=== PATIENT | female | born 2000 | race Caucasian/White ===

== ENCOUNTER 2022-08-19 10:04 | Inpatient (IN) ==
[2022-08-19 11:18] LABS: Appearance Urine Cloudy (Clear); Bacteria Urine Automated 1+ (Negative); Blood Urine Negative (Negative); Color Urine Dark Yellow; Epithelial Cell Urine Auto >30 /lpf (0-5); Glucose Urine UA Negative (Negative); Ketones Urine 3+ (Negative); Leukocyte Esterase Urine 1+ (Negative); Nitrite Urine Negative (Negative); Protein Urine 1+ (Negative); Specific Gravity Urine 1.025 (1.000-1.030); Urobilinogen Urine Negative (Negative); pH Urine 6.5 (4.5-7.5)
[2022-08-19] MEDS ORDERED: ONDANSETRON INJ 2 MG/ML 2 ML VIAL ONE (11:20)
[2022-08-19 11:26] LABS: Bilirubin Urine 1+ (Negative)
[2022-08-19] MEDS: ONDANSETRON INJ 2 MG/ML 2 ML VIAL IV STA (11:35)
[2022-08-19 11:43] LABS: Mucus Urine Present (None Prsent); Renal Epithelial Cells Urine 0-5 /lpf (0-5)
[2022-08-19 12:16] LABS: Basophils # (auto) 0.03 K/uL (0-0.2); Basophils % (auto) 0.3 %; Eosinophils # (auto) 0.01 K/uL (0-0.50); Eosinophils % (auto) 0.1 %; Hematocrit (blood only) 43.9 % (37.0-47.0); Hemoglobin 15.3 g/dl (12.0-16.0); Immature Granulocytes # (auto) 0.04 K/uL (0.01-0.20); Immature Granulocytes % (auto) 0.4 %; Lymphocytes # (auto) 1.24 K/uL (1.2-3.4); Lymphocytes % (auto) 11.2 %; Mean Corpuscular Hemoglobin 28.7 pg (25.0-34.0); Mean Corpuscular Hgb Conc 34.9 g/dL (32.0-36.0); Mean Corpuscular Volume 82.2 fL (80.0-100.0); Mean Platelet Volume 10.8 fL (9.4-12.4); Monocytes # (auto) 0.67 K/uL (0.11-0.59); Platelet Count 298 K/uL (130-400); RDW Coefficient of Variation 12.4 % (11.5-14.5); RDW Standard Deviation 36.8 fL (36.4-46.3); Red Blood Count 5.34 M/uL (4.20-5.40); White Blood Count 11.09 K/ul (4.8-10.8)
--- NOTE | 2022-08-19 12:24 | Emergency Department Note ---
History of Present Illness General Chief complaint: Mental Health Evaluation Stated complaint: DEPRESSION Time Seen by Provider: 08/19/22 11:03 History of Present Illness Provider complaint: Mental health evaluation vomiting Onset (ago): day(s) (12) Maximum Pain Intensity: 6 22-year-old female presents emergency department with mother for vomiting for 12 days. Patient states she is so depressed and that is why she keeps vomiting. Patient is requesting inpatient treatment for psychiatric concerns. Patient reports no hematemesis coffee-ground emesis or bilious vomiting. No abdominal pain. No intentional overdoses. No alcohol use or drug use. Patient states she is not . No diarrhea melena hematochezia vaginal bleeding or vaginal discharge. Home Medications Medication Instructions Recorded Confirmed Type No Known Home Medications 08/19/22 08/19/22 History Allergies Allergy/AdvReac Type Severity Reaction Status Date / Time No Known Allergies Allergy Verified 08/19/22 15:31 Past Med/Surg History Medical History Depression No pertinent family history Surgical History No pertinent past surgical history Social History Smoking Status: Never smoker Tobacco Type: E-cigarettes / Vaping Preferred Language: Tajik Feels Safe at Home: Yes Gender Identity: Female Physical Exam Vital Signs Vital Signs - 24 hr 08/19/22 10:14 08/19/22 10:04 08/19/22 13:00 Temperature 36.9 C Temperature Source Temporal Artery Scan Pulse Rate 88 Pulse Rate [Left] 79 Pulse Rhythm [Left] Regular Pulse Strength [Left] Normal Respiratory Rate 20 16 18 Respiratory Effort / Characteristics Non-Labored Non-Labored Respiratory Depth Normal Normal Respiratory Pattern Regular Blood Pressure 168/122 H Blood Pressure [Left Arm] 163/79 H Blood Pressure Mean 137 Blood Pressure Mean [Left Arm] 107 Blood Pressure Position [Left Arm] Lying Pulse Oximetry 98 98 Oxygen Delivery Method Room Air Room Air Sepsis Recent Fever Within 48 Hours No Sepsis New/Unexplained Change in Mental Status N/A Sepsis Action Taken by Nursing No Action Required 08/19/22 15:45 Temperature Temperature Source Pulse Rate Pulse Rate [Left] 70 Pulse Rhythm [Left] Pulse Strength [Left] Respiratory Rate 16 Respiratory Effort / Characteristics Respiratory Depth Respiratory Pattern Blood Pressure Blood Pressure [Left Arm] 143/76 H Blood Pressure Mean Blood Pressure Mean [Left Arm] 98 Blood Pressure Position [Left Arm] Pulse Oximetry 100 Oxygen Delivery Method Sepsis Recent Fever Within 48 Hours Sepsis New/Unexplained Change in Mental Status Sepsis Action Taken by Nursing Physical Exam HENT: Exam performed. - Head: Normocephalic and atraumatic. EYES: Conjunctivae and EOM are normal. Right eye exhibits no discharge. Left eye exhibits no discharge. No scleral icterus. NECK: Normal range of motion. Neck supple. No JVD present. CV: Normal rate, regular rhythm, normal heart sounds and intact distal pulses. There is no peripheral edema. Palpable radial pulses bue. PULM/CHEST: Effort normal and breath sounds normal. No respiratory distress. No stridor. no wheezes. no rales. ABD: The abdomen is soft. There is no tenderness. NEURO: Motor and sensation grossly intact. SKIN: Skin is warm and dry. He is not diaphoretic. PSYCH: Patient reports she is depressed. Course Course 1103: The patient was evaluated in room A5. A complete history and physical exam was performed 1608: Vital signs stable. Patient medically cleared. Awaiting psychiatric evaluation and possible placement. 1725: Patient excepted to 3 S. Administered Medications Nicotine (Nicotine 14 Mg/24 Hr Patch) 14 mg TD QAM [facility] Stop: 09/18/22 16:44 Last Admin: 08/19/22 16:44 Dose: 14 mg Documented By: ARMANDO Discontinued Medications Diphenhydramine HCl (Diphenhydramine 50 Mg/Ml Vial) 25 mg IV NOW STA Stop: 08/19/22 12:43 Last Admin: 08/19/22 12:46 Dose: 25 mg Documented By: DAVONTE Metoclopramide HCl (Metoclopramide Hcl Inj 5 Mg/Ml 2 Ml Vial) 5 mg IV ONE ONE Stop: 08/19/22 12:43 Last Admin: 08/19/22 12:46 Dose: 5 mg Documented By: DAVONTE Ondansetron HCl (Ondansetron Inj 2 Mg/Ml 2 Ml Vial) Confirm Administered Dose 4 mg .ROUTE .STK-MED ONE Stop: 08/19/22 11:21 Last Admin: 08/19/22 11:35 Dose: Not Given Documented By: ELAINE Ondansetron HCl (Ondansetron Inj 2 Mg/Ml 2 Ml Vial) 4 mg IV NOW STA Stop: 08/19/22 11:34 Last Admin: 08/19/22 11:35 Dose: 4 mg Documented By: Admin: 08/19/22 11:35 Dose: 4 mg Documented By: IA Medical Decision Making Laboratory Data Attestation: I reviewed the patient's lab results. 08/19/22 11:25 08/19/22 11:25 Lab Results 08/19/22 08/19/22 08/19/22 Range/Units 11:00 11:25 11:25 WBC 11.09 H (4.8-10.8) K/ul RBC 5.34 (4.20-5.40) M/uL Hgb 15.3 (12.0-16.0) g/dl Hct 43.9 (37.0-47.0) % MCV 82.2 (80.0-100.0) fL MCH 28.7 (25.0-34.0) pg MCHC 34.9 (32.0-36.0) g/dL RDW Std Deviation 36.8 (36.4-46.3) fL RDW Coeff of Judah 12.4 (11.5-14.5) % Plt Count 298 (130-400) K/uL MPV 10.8 (9.4-12.4) fL Immature Gran % (Auto) 0.4 % Neut % (Auto) 82.0 % Lymph % (Auto) 11.2 % [place] % (Auto) 6.0 % Eos % (Auto) 0.1 % Baso % (Auto) 0.3 % Neut # (Auto) 9.10 H (1.40-6.50) K/uL Lymph # (Auto) 1.24 (1.2-3.4) K/uL Taney # (Auto) 0.67 H (0.11-0.59) K/uL Eos # (Auto) 0.01 (0-0.50) K/uL Baso # (Auto) 0.03 (0-0.2) K/uL Immature Gran # (Auto) 0.04 (0.01-0.20) K/uL Sodium 135 L (136-145) mmol/L Potassium 3.6 (3.5-5.1) mmol/L Chloride 102 (98-107) mmol/L Carbon Dioxide 22 (21-32) mmol/L Anion Gap 11 (3-11) BUN 8 (6-23) mg/dl Creatinine 0.81 (0.6-1.2) mg/dl Est Cr Clr Drug Dosing 138.4 ml/min Est GFR ( Amer) 119.5 ml/min Est GFR (Non-Af Amer) 103.1 ml/min BUN/Creatinine Ratio 9.9 L (10-20) Glucose 109 H (70-99(Fasting)) mg/dl Calcium 9.5 (8.6-10.3) mg/dl Total Bilirubin 0.5 (0.2-1.0) mg/dl AST 13 (13-39) U/L ALT 12 (7-52) U/L Alkaline Phosphatase 48 (34-104) U/L Total Protein 7.7 (6.0-8.3) gm/dl Albumin 4.5 (3.4-5.0) gm/dl Globulin 3.2 (2.5-4.0) gm/dl Albumin/Globulin Ratio 1.4 (0.9-2) Lipase 17 (11-82) U/L TSH (0.300-4.500) uIu/ml Urine Color Dark Yellow Urine Appearance Cloudy A (Clear) Urine pH 6.5 (4.5-7.5) Ur Specific [place] 1.025 (1.000-1.030) Urine Protein 1+ H (Negative) Urine Glucose (UA) Negative (Negative) Urine Ketones 3+ H (Negative) Urine Blood Negative (Negative) Urine Nitrite Negative (Negative) Urine Bilirubin 1+ H (Negative) Urine Urobilinogen Negative (Negative) Ur Leukocyte Esterase 1+ H (Negative) Urine WBC (Auto) 10-30 H (0-5) /hpf Urine RBC (Auto) 5-10 H (0-4) /hpf U Hyaline Cast (Auto) 1-5 (0-5) /lpf U Epithel Cells (Auto) >30 H (0-5) /lpf Urine Bacteria (Auto) 1+ H (Negative) Ur Renal Epithelial Cell 0-5 (0-5) /lpf Urine Mucus Present A (None Prsent) Salicylates (3.0-30) mg/dl Acetaminophen (10-30) ug/ml Ethyl Alcohol mg/dL (<10.0) mg/dl 08/19/22 08/19/22 08/19/22 Range/Units 11:25 11:25 11:25 WBC (4.8-10.8) K/ul RBC (4.20-5.40) M/uL Hgb (12.0-16.0) g/dl Hct (37.0-47.0) % MCV (80.0-100.0) fL MCH (25.0-34.0) pg MCHC (32.0-36.0) g/dL RDW Std Deviation (36.4-46.3) fL RDW Coeff of Judah (11.5-14.5) % Plt Count (130-400) K/uL MPV (9.4-12.4) fL Immature Gran % (Auto) % Neut % (Auto) % Lymph % (Auto) % [place] % (Auto) % Eos % (Auto) % Baso % (Auto) % Neut # (Auto) (1.40-6.50) K/uL Lymph # (Auto) (1.2-3.4) K/uL [place]aney # (Auto) (0.11-0.59) K/uL Eos # (Auto) (0-0.50) K/uL Baso # (Auto) (0-0.2) K/uL Immature Gran # (Auto) (0.01-0.20) K/uL Sodium (136-145) mmol/L Potassium (3.5-5.1) mmol/L Chloride (98-107) mmol/L Carbon Dioxide (21-32) mmol/L Anion Gap (3-11) BUN (6-23) mg/dl Creatinine (0.6-1.2) mg/dl Est Cr Clr Drug Dosing ml/min Est GFR ( Amer) ml/min Est GFR (Non-Af Amer) ml/min BUN/Creatinine Ratio (10-20) Glucose (70-99(Fasting)) mg/dl Calcium (8.6-10.3) mg/dl Total Bilirubin (0.2-1.0) mg/dl AST (13-39) U/L ALT (7-52) U/L Alkaline Phosphatase (34-104) U/L Total Protein (6.0-8.3) gm/dl Albumin (3.4-5.0) gm/dl Globulin (2.5-4.0) gm/dl Albumin/Globulin Ratio (0.9-2) Lipase (11-82) U/L TSH 0.588 (0.300-4.500) uIu/ml Urine Color Urine Appearance (Clear) Urine pH (4.5-7.5) Ur Specific [place] (1.000-1.030) Urine Protein (Negative) Urine Glucose (UA) (Negative) Urine Ketones (Negative) Urine Blood (Negative) Urine Nitrite (Negative) Urine Bilirubin (Negative) Urine Urobilinogen (Negative) Ur Leukocyte Esterase (Negative) Urine WBC (Auto) (0-5) /hpf Urine RBC (Auto) (0-4) /hpf U Hyaline Cast (Auto) (0-5) /lpf U Epithel Cells (Auto) (0-5) /lpf Urine Bacteria (Auto) (Negative) Ur Renal Epithelial Cell (0-5) /lpf Urine Mucus (None Prsent) Salicylates < 3.0 L (3.0-30) mg/dl Acetaminophen < 3 L (10-30) ug/ml Ethyl Alcohol mg/dL < 10.0 (<10.0) mg/dl Imaging Data Attestation: I personally reviewed and interpreted this imaging study as follows: My Impression: Chest x-ray negative. Airway clear. No pneumothorax. No consolidation. No cardiomegaly or cephalization.. No free air under the diaphragm. No fractures of the skeletal structures. Nonspecific bowel gas pattern no air-fluid levels. Radiologist's Impression: Chest/Abdomen X-ray 08/19/22 11:21 MI CHEST WITH ABDOMINAL SERIES CLINICAL HISTORY: Vomiting. FINDINGS: A PA chest radiograph is compared to study dated 10/20/2021. The cardiomediastinal silhouette is unremarkable. The lungs and pleural spaces are clear. No pneumothorax is seen. The bony thorax is grossly intact. Supine and erect abdominal radiographs are correlated with abdominal CT dated 10/20/2021. A navel piercing is in place. There is a nonobstructed abdominal bowel gas pattern. No evidence of intraperitoneal free air is seen. There are no abnormal abdominal calcifications. The lumbosacral spine and bony pelvis appear intact. IMPRESSION: 1. No active disease in the chest. 2. Nonobstructed abdominal bowel gas pattern. ACT 112: Negative or not required by law. Electronically signed by: Greg Snyder M.D. 08/19/2022 4:15 PM [facility] Narrative 1103: The patient was evaluated in room A5. A complete history and physical exam was performed 1608: Vital signs stable. Patient medically cleared. Awaiting psychiatric evaluation and possible placement. 1725: Patient excepted to 3 S. Impression & Plan Depression, Nausea & vomiting Discharge Plan Visit Data Chief Complaint: Mental Health Evaluation Stated Complaint: DEPRESSION ED Provider: Delgado Wilhelm Discharge Problem: Depression, Nausea & vomiting Patient Disposition: Admitted As Inpatient Discharge Instructions Interventions: ED Discharge Assessment Last Done: 08/19/22 17:27
[2022-08-19 12:31] LABS: Albumin Level 4.5 gm/dl (3.4-5.0); Bilirubin,Total 0.5 mg/dl (0.2-1.0); Calcium 9.5 mg/dl (8.6-10.3); Potassium 3.6 mmol/L (3.5-5.1)
[2022-08-19 12:36] LABS: Acetaminophen < 3 ug/ml (10-30); Salicylate < 3.0 mg/dl (3.0-30)
[2022-08-19 12:37] LABS: Albumin Globulin Ratio 1.4 (0.9-2); BUN Creatinine Ratio 9.9 (10-20); Creatinine Clr Calc Pharmacy 138.4 ml/min; Est GFR (African American) 119.5 ml/min; Est GFR (Non-African American) 103.1 ml/min; Globulin 3.2 gm/dl (2.5-4.0); Total Protein 7.7 gm/dl (6.0-8.3)
[2022-08-19] MEDS ORDERED: METOCLOPRAMIDE HCL INJ 5 MG/ML 2 ML VIAL IV ONE (12:42)
[2022-08-19] MEDS ORDERED: diphenhydrAMINE 50 MG/ML VIAL IV STA (12:42)
[2022-08-19 14:15] LABS: Pregnancy Test, Urine Negative (Negative)
[2022-08-19 14:30] LABS: Amphetamines+Metham, Urine Neg (Neg); Barbiturates, Urine Neg (Neg); Benzodiazepine, Urine Neg (Neg); Cocaine, Urine Neg (Neg); MDMA (Ecstacy), Urine Neg (Neg); Methadone, Urine Neg (Neg); Opiate, Urine Neg (Neg); Phencyclidine, Urine Neg (Neg)
--- NOTE | 2022-08-19 16:16 | XRay Report ---
PA CHEST WITH ABDOMINAL SERIES CLINICAL HISTORY: Vomiting. FINDINGS: A PA chest radiograph is compared to study dated 10/20/2021. The cardiomediastinal silhouette is unrem arkable. The lungs and pleural spaces are clear. No pneumothorax is seen. The bony thorax is grossly intact. Supine and erect abdominal radiographs are correlated with abdominal CT dated 10/20/2021. A navel pier cing is in place. There is a nonobstructed abdominal bowel gas pattern. No evidence of intraperitonea l free air is seen. There are no abnormal abdominal calcifications. The lumbosacral spine and bony pe lvis appear intact. IMPRESSION: 1. No active disease in the chest. 2. Nonobstructed abdominal bowel gas pattern. ACT 112: Negative or not required by law. Electronically signed by: Greg Snyder M.D. 08/19/2022 4:15 PM
[2022-08-19] MEDS: NICOTINE 14 MG/24 HR PATCH TD SCH (16:44)
[2022-08-19] MEDS ORDERED: BISMUTH SUBSALICYLATE LIQD 236 ML PO PRN (17:13)
[2022-08-19] MEDS ORDERED: MAGNESIUM HYDROXIDE SUSP 30 ML UDC PO PRN (17:13)
[2022-08-19] MEDS ORDERED: ACETAMINOPHEN 325 MG TAB PO PRN (17:13)
[2022-08-19] MEDS ORDERED: SODIUM CHLORIDE 0.65% NA SOLN 45 ML (OCEAN) PRN (17:13)
[2022-08-19] MEDS ORDERED: hydrOXYzine HCl 25 MG TAB PO PRN (17:13)
[2022-08-19] MEDS ORDERED: ONDANSETRON 8MG OD TAB PO PRN (18:21)
[2022-08-19] MEDS: hydrOXYzine HCl 25 MG TAB PO PRN (18:23)
[2022-08-20] MEDS: ALUMINUM/MAGNESIUM SUSP 30 ML UDC PO PRN (06:50)
--- NOTE | 2022-08-20 07:44 | History & Physical ---
Date of Service August 20, 2022 Impression / Recommendations Impression 22 y/o F with a history of major depression and REJI and months of intractable nausea and vomiting who presents today as fairly cheerful and no longer nauseated. She was admitted with suicidal thoughts that she now reports have resolved. (1) Major depressive disorder, recurrent, moderate: (2) REJI (generalized anxiety disorder): Plan 08/20/2022: The patient was admitted to the [facility] ([facility]) on q15 min checks (behavioral with suicide precautions) for safety. The patient will participate in group, recreational, and milieu therapies and will be offered additional individual and family sessions as clinically appropriate. Discussed possibility of resuming duloxetine based on her report of possible benefit with a previous trial. Reviewed potential benefits, known possible risks, and alternatives. * start duloxetine 20 mg daily, anticipate likely titration to higher dose Inventory Assets Strengths: supportive relationships, has local supports,voluntary, employed, Needs: safety and stabilization, medication adjustment, additional coping skills Suicide Risk Level Suicide Risk Level: Moderate (q15 min suicide checks) Risk Factors Assessment Male: No : Yes Do You Have Access To A Gun?: No Health Problems: Yes Mental Health Diagnoses: Yes Substance Use Disorders: No Previous Attempt: Yes Previous Psychiatric Hospitalization: Yes Protective Factors Assessment Employed: Yes ([employer]) Supportive Family: Yes Psychiatric History Identifying Data OLEKSANDR PINK is a 22-year-old F who currently lives in [] [alone] with [], has a history of [], and was admitted on 08/19/22 17:13 on a [201 voluntary] [302 involuntary] commitment for []. Chief Complaint "I'm feeling better now". History of Present Illness As part of my review of the medical record, I read the following ED psychiatric renal case manager note: "Pt reports increased depression and anxiety. She states she has been nauseated and vomiting due to her anxiety. She believes that she is dehydrated. She has had multiple stressors recently to include a miscarriage 3 weeks ago. A few days after her miscarriage her sister had a baby which has been very difficult for her. In addition, her other sister was recently dx with cancer. Pt reports that she has not been sleeping and has not been able to go to work for the past week due to her depression and anxiety. She denies SI at this time but states she needs inpatient treatment because she is not functioning. Pt lives with her mom and dad. Mom is with her in the ER and reports that pt has extreme mood swings. She has been having crying spells frequently and has no motivation to work or leave the house. Pt has a hx of depression with one suicide attempt by hanging 3 years ago. At that time she was admitted to [facility] for inpatient treatment. She currently has no outpatient psychiatric providers and takes no medications. She smokes marijuana a few times a week but denies other D&A. She has no hx of self-injurious behaviors. She denies hallucinations, delusions, and paranoia. Pt is not willing to engage in safety/discharge planning. She states she needs inpatient treatment." and the following psychiatric liaison RN note: "She denies suicidal ideations but reports not caring for herself. She has n ot been going to work, she is employed as a hairdresser. For the past 12 days she has had nausea and been vomitting excessively. She reports not eating solid food for the past 12 days and losing approximately 14lbs. She feels that this has been a result of her increased anxiety. Stressors include a miscarriage in June and her sister recently being diagnosed with cancer. She has a history of suicide attempt by hanging which she received inpatient treatment for in 2019 at [facility]. The patient reports that she was taking Cymbalta, Wellbutrin, and Ativan until approximately a year ago. She used to see Dr. Mcmullen but his practice closed so she stopped seeing a psychiatrist. She currently sees HAYDER Vigil as her PCP. She currently uses medical marijuana. The patient is willing for medications. Her fiance is very supportive of her. She is on suicide precautions." Pt reports that she "woke up feeling a lot better" - no longer nauseated at all and not having any suicidal thoughts. She stopped cannabis about a week ago after being told it could account for her nausea, and thinks that was pretty plausible. She presents as cheerful, laughing and joking at times. She endorses having not been going to work "for a while" and having done reduced self-care. She reports having "done pretty good" in the past on medication, but isn't entirely sure what accounts for improvement since she was on duloxetine, bupropion, and doxepin that were all started around the same time. Past Psychiatric History Current Psychiatric Diagnosis: Depression/Anxiety Outpatient Services: none current Previous Psych Admissions: [facility] 2019 Do You Have Access To A Gun?: No History of Previous Suicide Attempt: Yes (2019) Describe Attempts in the Past: attempted hanging 2019 Past Medication Trials: bupropion, doxepin, duloxetine Allergies Allergy/AdvReac Type Severity Reaction Status Date / Time No Known Allergies Allergy Verified 08/19/22 15:31 Home Medications Medication Instructions Recorded Confirmed Type No Known Home Medications 08/19/22 08/19/22 History Family History Family History of: Doesn't Know Alcohol History Hx of Alcohol Use Over the Past 12 Months: No AUDIT Total Score: 0 Smoking Use Have You Smoked or Used Tobacco Products in the Last 30 Days: Yes tobacco type: e-cigarettes Smoking Status: Current every day smoker Smoking packs per day: 1 Substance History Hx of Prescription Med Misuse Over the Past 12 Months: No Hx of Over the Counter Med Misuse Over the Past 12 Months: No Hx of Inhalent Misuse Over the Past 12 Months: No Hx of Organic Substance Use Over the Past 12 Months: Yes (medical marijuana) Hx of Illegal Substances/Street Drug Use Over Past 12 Months: No Problems as a Result of Past Substance Use: None Identified Personal History Living Arrangements: Home Beliefs That Will Affect Care: None Patient History Medical History Depression No pertinent family history Surgical History No pertinent past surgical history Social History Smoking Status: Current every day smoker Tobacco Type: E-cigarettes / Vaping Preferred Language: Mongolian Communication Ability: Effective Assistant Manager/Embalmer Required: No Beliefs That Will Affect Care: None Feels Safe at Home: Yes Gender Identity: Female Assistive Devices: None Review of Systems Psychiatric: + depression and + anxiety; no hopelessness, no paranoia and no hallucinations Physical Exam Psychiatric: Orientation: alert, oriented to person, oriented to place, oriented to time and cooperative Apperance: appropriately dressed and appropriately groomed Eye Contact: good eye contact Motor Behavior: no abnormal motor movements Speech: normal rate/rhythm/volume of speech Affect: euthymic affect (cheerful, but not excessive) Mood: + anxious mood Thought Process: clear/coherent thought process Suicidal Thoughts: denies suicidal thoughts (today), denies suicidal plan and denies suicidal intent Homicidal Thoughts: denies homicidal thoughts Hallucinations: no auditory hallucinations and no visual hallucinations Cognition: recent memory grossly intact, remote memory grossly intact, attention grossly intact and language grossly intact Estimated Intelligence: average estimated intelligence Insight: + fair insight Judgment: + fair judgement Vital Signs (Past 24 Hours): Last Vital Signs Temp 36.6 C 08/20/22 06:00 Pulse 80 08/20/22 06:43 Resp 16 08/20/22 06:00 BP 125/87 08/20/22 06:43 Pulse Ox 100 08/19/22 15:45 O2 Del Method Room Air 08/19/22 13:00 Exam Statement: A physical exam was performed in the ED for the purposes of medical clearance. I accept that physical as correct and adequate for the purposes of the inpatient physical exam. Results & Data (RUST) Laboratory Results Laboratory Results - last 24 hr 08/19/22 08/19/22 08/19/22 11:00 11:25 11:25 WBC 11.09 H RBC 5.34 Hgb 15.3 Hct 43.9 MCV 82.2 MCH 28.7 MCHC 34.9 RDW Std Deviation 36.8 RDW Coeff of Judah 12.4 Plt Count 298 MPV 10.8 Immature Gran % (Auto) 0.4 Neut % (Auto) 82.0 Lymph % (Auto) 11.2 Quay % (Auto) 6.0 Eos % (Auto) 0.1 Baso % (Auto) 0.3 Neut # (Auto) 9.10 H Lymph # (Auto) 1.24 Quay # (Auto) 0.67 H Eos # (Auto) 0.01 Baso # (Auto) 0.03 Immature Gran # (Auto) 0.04 Sodium 135 L Potassium 3.6 Chloride 102 Carbon Dioxide 22 Anion Gap 11 BUN 8 Creatinine 0.81 Est Cr Clr Drug Dosing 138.4 Est GFR ( Amer) 119.5 Est GFR (Non-Af Amer) 103.1 BUN/Creatinine Ratio 9.9 L Glucose 109 H Calcium 9.5 Total Bilirubin 0.5 AST 13 ALT 12 Alkaline Phosphatase 48 Total Protein 7.7 Albumin 4.5 Globulin 3.2 Albumin/Globulin Ratio 1.4 Lipase 17 TSH Urine Color Dark Yellow Urine Appearance Cloudy A Urine pH 6.5 Ur Specific [place] 1.025 Urine Protein 1+ H Urine Glucose (UA) Negative Urine Ketones 3+ H Urine Blood Negative Urine Nitrite Negative Urine Bilirubin 1+ H Urine Urobilinogen Negative Ur Leukocyte Esterase 1+ H Urine WBC (Auto) 10-30 H Urine RBC (Auto) 5-10 H U Hyaline Cast (Auto) 1-5 U Epithel Cells (Auto) >30 H Urine Bacteria (Auto) 1+ H Ur Renal Epithelial Cell 0-5 Urine Mucus Present A Urine Test Salicylates Urine Opiates Screen Ur Methadone, Qual Acetaminophen Urine Barbiturates Ur Phencyclidine (PCP) U Amphetamin/Meth Scrn MDMA (Ecstasy) Screen U Benzodiazepines Scrn Ur Cocaine Metabolite U Marijuana (THC) Screen U Marijuana THC Carboxy Drug Screen Comment Ethyl Alcohol mg/dL SARS-CoV-2, RNA, NAAT 08/19/22 08/19/22 08/19/22 11:25 11:25 11:25 WBC RBC Hgb Hct MCV MCH MCHC RDW Std Deviation RDW Coeff of Judah Plt Count MPV Immature Gran % (Auto) Neut % (Auto) Lymph % (Auto) Quay % (Auto) Eos % (Auto) Baso % (Auto) Neut # (Auto) Lymph # (Auto) Quay # (Auto) Eos # (Auto) Baso # (Auto) Immature Gran # (Auto) Sodium Potassium Chloride Carbon Dioxide Anion Gap BUN Creatinine Est Cr Clr Drug Dosing Est GFR ( Amer) Est GFR (Non-Af Amer) BUN/Creatinine Ratio Glucose Calcium Total Bilirubin AST ALT Alkaline Phosphatase Total Protein Albumin Globulin Albumin/Globulin Ratio Lipase TSH 0.588 Urine Color Urine Appearance Urine pH Ur Specific [place] Urine Protein Urine Glucose (UA) Urine Ketones Urine Blood Urine Nitrite Urine Bilirubin Urine Urobilinogen Ur Leukocyte Esterase Urine WBC (Auto) Urine RBC (Auto) U Hyaline Cast (Auto) U Epithel Cells (Auto) Urine Bacteria (Auto) Ur Renal Epithelial Cell Urine Mucus Urine Test Salicylates < 3.0 L Urine Opiates Screen Ur Methadone, Qual Acetaminophen < 3 L Urine Barbiturates Ur Phencyclidine (PCP) U Amphetamin/Meth Scrn MDMA (Ecstasy) Screen U Benzodiazepines Scrn Ur Cocaine Metabolite U Marijuana (THC) Screen U Marijuana THC Carboxy Drug Screen Comment Ethyl Alcohol mg/dL < 10.0 SARS-CoV-2, RNA, NAAT 08/19/22 08/19/22 08/19/22 Unknown Unknown Unknown WBC RBC Hgb Hct MCV MCH MCHC RDW Std Deviation RDW Coeff of Judah Plt Count MPV Immature Gran % (Auto) Neut % (Auto) Lymph % (Auto) Quay % (Auto) Eos % (Auto) Baso % (Auto) Neut # (Auto) Lymph # (Auto) Quay # (Auto) Eos # (Auto) Baso # (Auto) Immature Gran # (Auto) Sodium Potassium Chloride Carbon Dioxide Anion Gap BUN Creatinine Est Cr Clr Drug Dosing Est GFR ( Amer) Est GFR (Non-Af Amer) BUN/Creatinine Ratio Glucose Calcium Total Bilirubin AST ALT Alkaline Phosphatase Total Protein Albumin Globulin Albumin/Globulin Ratio Lipase TSH Urine Color Urine Appearance Urine pH Ur Specific [place] Urine Protein Urine Glucose (UA) Urine Ketones Urine Blood Urine Nitrite Urine Bilirubin Urine Urobilinogen Ur Leukocyte Esterase Urine WBC (Auto) Urine RBC (Auto) U Hyaline Cast (Auto) U Epithel Cells (Auto) Urine Bacteria (Auto) Ur Renal Epithelial Cell Urine Mucus Urine Test Negative Salicylates Urine Opiates Screen Neg Ur Methadone, Qual Neg Acetaminophen Urine Barbiturates Neg Ur Phencyclidine (PCP) Neg U Amphetamin/Meth Scrn Neg MDMA (Ecstasy) Screen Neg U Benzodiazepines Scrn Neg Ur Cocaine Metabolite Neg U Marijuana (THC) Screen Pos H U Marijuana THC Carboxy Drug Screen Comment Ethyl Alcohol mg/dL SARS-CoV-2, RNA, NAAT NEGATIVE 08/19/22 Unknown WBC RBC Hgb Hct MCV MCH MCHC RDW Std Deviation RDW Coeff of Judah Plt Count MPV Immature Gran % (Auto) Neut % (Auto) Lymph % (Auto) Quay % (Auto) Eos % (Auto) Baso % (Auto) Neut # (Auto) Lymph # (Auto) Quay # (Auto) Eos # (Auto) Baso # (Auto) Immature Gran # (Auto) Sodium Potassium Chloride Carbon Dioxide Anion Gap BUN Creatinine Est Cr Clr Drug Dosing Est GFR ( Amer) Est GFR (Non-Af Amer) BUN/Creatinine Ratio Glucose Calcium Total Bilirubin AST ALT Alkaline Phosphatase Total Protein Albumin Globulin Albumin/Globulin Ratio Lipase TSH Urine Color Urine Appearance Urine pH Ur Specific [place] Urine Protein Urine Glucose (UA) Urine Ketones Urine Blood Urine Nitrite Urine Bilirubin Urine Urobilinogen Ur Leukocyte Esterase Urine WBC (Auto) Urine RBC (Auto) U Hyaline Cast (Auto) U Epithel Cells (Auto) Urine Bacteria (Auto) Ur Renal Epithelial Cell Urine Mucus Urine Test Salicylates Urine Opiates Screen Ur Methadone, Qual Acetaminophen Urine Barbiturates Ur Phencyclidine (PCP) U Amphetamin/Meth Scrn MDMA (Ecstasy) Screen U Benzodiazepines Scrn Ur Cocaine Metabolite U Marijuana (THC) Screen U Marijuana THC Carboxy Pending Drug Screen Comment Pending Ethyl Alcohol mg/dL SARS-CoV-2, RNA, NAAT Current Inpatient Medications Current Inpatient Medications: Current Inpatient Medications Acetaminophen (Acetaminophen 325 Mg Tab) 650 mg PO Q4H PRN PRN Reason: Headache or Minor Fever Stop: 09/18/22 17:12 Al Hydrox/Mg Hydrox/Simethicone (Aluminum/Magnesium Susp 30 Ml Udc) 30 ml PO Q4H PRN PRN Reason: GI Upset Stop: 09/18/22 17:12 Last Admin: 08/20/22 06:50 Dose: 30 ml Bismuth Subsalicylate (Bismuth Subsalicylate Liqd 236 Ml) 15 ml PO PRN PRN PRN Reason: Loose Stool Stop: 09/18/22 17:12 Hydroxyzine HCl (Hydroxyzine Hcl 25 Mg Tab) 50 mg PO HSZ PRN PRN Reason: Insomnia Stop: 09/18/22 17:12 Hydroxyzine HCl (Hydroxyzine Hcl 25 Mg Tab) 25 mg PO Q4H PRN PRN Reason: Anxiety Stop: 09/18/22 17:12 Last Admin: 08/19/22 18:23 Dose: 25 mg Magnesium Hydroxide (Magnesium Hydroxide Susp 30 Ml Udc) 30 ml PO DAILY PRN PRN Reason: Constipation Stop: 09/18/22 17:12 Miscellaneous (Remove Nicoderm Patch) 1 each N/A DAILY@0859 [facility] Stop: 09/19/22 08:58 Nicotine (Nicotine 14 Mg/24 Hr Patch) 14 mg TD QAM [facility] Stop: 09/18/22 16:44 Last Admin: 08/19/22 16:44 Dose: 14 mg Ondansetron HCl (Ondansetron 8mg Od Tab) 8 mg PO Q6H PRN PRN Reason: Nausea And Vomiting Stop: 09/18/22 18:20 Sodium Chloride (Sodium Chloride 0.65% Na Soln 45 Ml ([place])) 1 - 2 sprays NA PRN PRN PRN Reason: Nasal Dryness/Congestion Stop: 09/18/22 17:12
[2022-08-20] MEDS: NICOTINE 14 MG/24 HR PATCH TD SCH (08:52)
[2022-08-20 13:13] LABS: Vitamin B12 > 1500 pg/ml (180-914)
[2022-08-20 13:17] LABS: Vitamin D, 25 Hydrox 18.9 ng/ml (30-100)
[2022-08-20] MEDS: hydrOXYzine HCl 25 MG TAB PO PRN (21:54)
--- NOTE | 2022-08-20 22:07 | Electrocardiogram Report ---
Test Reason : Blood Pressure : / mmHG Vent. Rate : 074 BPM Atrial Rate : 074 BPM P-R Int : 130 ms QRS Dur : 088 ms QT Int : 402 ms P-R-T Axes : 039 064 044 degrees QTc Int : 446 ms Poor data quality, interpretation may be adversely affected Normal sinus rhythm Normal ECG When compared with ECG of 20-OCT-2021 16:54, No significant change was found Confirmed by Trenton Joshi ([id number]) on 08/20/2022 10:07:42 PM Referred By: Confirmed By:Trenton Joshi
[2022-08-21] MEDS: ALUMINUM/MAGNESIUM SUSP 30 ML UDC PO PRN (06:55)
[2022-08-21] MEDS: NICOTINE 14 MG/24 HR PATCH TD SCH (08:33)
[2022-08-21] MEDS ORDERED: DULoxetine HCL 20 MG CAP PO SCH (09:30)
[2022-08-21] MEDS: hydrOXYzine HCl 25 MG TAB PO PRN (09:44)
--- NOTE | 2022-08-21 10:48 | Discharge Summary ---
Date of Service August 21, 2022 History of Present Illness Per admission H&P by Dr. Patino: As part of my review of the medical record, I read the following ED psychiatric director case note: "Pt reports increased depression and anxiety. She states she has been nauseated and vomiting due to her anxiety. She believes that she is dehydrated. She has had multiple stressors recently to include a miscarriage 3 weeks ago. A few days after her miscarriage her sister had a baby which has been very difficult for her. In addition, her other sister was recently dx with cancer. Pt reports that she has not been sleeping and has not been able to go to work for the past week due to her depression and anxiety. She denies SI at this time but states she needs inpatient treatment because she is not functioning. Pt lives with her mom and dad. Mom is with her in the ER and reports that pt has extreme mood swings. She has been having crying spells frequently and has no motivation to work or leave the house. Pt has a hx of depression with one suicide attempt by hanging 3 years ago. At that time she was admitted to [facility] for inpatient treatment. She currently has no outpatient psychiatric providers and takes no medications. She smokes marijuana a few times a week but denies other D&A. She has no hx of self-injurious behaviors. She denies hallucinations, delusions, and paranoia. Pt is not willing to engage in safety/discharge planning. She states she needs inpatient treatment." and the following psychiatric liaison RN note: "She denies suicidal ideations but reports not caring for herself. She has not been going to work, she is employed as a hairdresser. For the past 12 days she has had nausea and been vomitting excessively. She reports not eating solid food for the past 12 days and losing approximately 14lbs. She feels that this has been a result of her increased anxiety. Stressors include a miscarriage in June and her sister recently being diagnosed with cancer. She has a history of suicide attempt by hanging which she received inpatient treatment for in 2019 at [facility]. The patient reports that she was taking Cymbalta, Wellbutrin, and Ativan until approximately a year ago. She used to see Dr. Mcmullen but his practice closed so she stopped seeing a psychiatrist. She currently sees HAYDER Vigil as her PCP. She currently uses medical marijuana. The patient is willing for medications. Her fiance is very supportive of her. She is on suicide precautions." Pt reports that she "woke up feeling a lot better" - no longer nauseated at all and not having any suicidal thoughts. She stopped cannabis about a week ago after being told it could account for her nausea, and thinks that was pretty plausible. She presents as cheerful, laughing and joking at times. She endorses having not been going to work "for a while" and having done reduced self-care. She reports having "done pretty good" in the past on medication, but isn't entirely sure what accounts for improvement since she was on duloxetine, bupropion, and doxepin that were all started around the same time. Physical Exam Vital Signs (Past 24 Hours) Last Vital Signs Temp 36.4 C L 08/21/22 06:00 Pulse 65 08/21/22 07:02 Resp 16 08/21/22 06:00 BP 121/83 08/21/22 07:02 Pulse Ox 100 08/19/22 15:45 O2 Del Method Room Air 08/19/22 13:00 See admission H&P and DOD summary. Principal Diagnosis Major Depressive Disorder, recurrent with anxious distress Psychiatric Data See daily stay summary. In short, patient was engaged with the social/therapeutic milieu of the unit, safety was maintained and the patient was cooperative with care. She was admitted for worsening major depressive with severe anxiety leading to inability to eat over the prior 12 days and with excessive weight loss of approximately 14 lbs and increased difficulty functioning and attending to her ADLs. On admission her symptoms improved significantly with no further emesis and was able to tolerate solid foods. She had difficulty sleeping which she attributed to depression as well as not finding the mattress comfortable which worsened her sciatica pain. On her second day of admission reviewed that her insurance denied her prior authorization and that a peer to peer review was scheduled for 08/23/2022 as it is felt that she meets admission criteria. However, given her history of issues with insurance coverage and already having financial stressors she requested discharge given improvement in her nausea and mood and she was not felt to meet 302 criteria. Medication changes included initiation of duloxetine for depression and anxiety and Vistaril as needed for panic attacks which she tolerated this well. She was also given a script to start mirtazapine after discharge for insomnia, nausea, and as augmentation for depression and anxiety. Discussed medication treatment options in detail. Discussed risks, benefits and alternatives. Patient consented to duloxetine, Vistaril and mirtazapine for MDD, REJI and panic attacks. Reviewed side effects including but not limited to: GI, [place], elevated BP, sexual side effects, and counseled on black box warning of potential for emergence of or increased SI and need to let staff know should this occur or should they feel unsafe. Also discussed importance of seeking emergency care following discharge if this side effect occurs in the future with duloxetine and mirtazapine as well as increased sedation/increased appetite with mirtazapine and dizziness/fatigue with Vistaril. In the outpatient setting recommend ongoing titration of duloxetine 20mg daily if tolerated. Reviewed possibility of cannabis contributing to or causing recent emesis and she plans to avoid any future cannabis use. A support session was held and safety plan was completed prior to discharge. She actively and insightfully participated in safety planning and in discussions about ways to seek support and recognizing warning signs and utilizing coping skills. Reviewed mobile apps that could be used for additional ways to have their safety plan and contacts easily available should thoughts of SI occur in the future. Reviewed importance of seeking emergency care should SI occur or denisse uld they feel unsafe in the future which they agree to do. On the day of discharge she stated her mood was "relieved to be trying some new medications and good" and remained future-oriented including seeing her fiancee and engaging in aftercare appointments for psychiatry and therapy (once off the waitlist) and with her primary care provider and embedded psychiatrist within PCP office. Day of Discharge Assessment Today the patient voices readiness for discharge. They note improvement in mood and anxiety. They deny thoughts of harm to self or others. Thoughts are organized and they are clinically improved from admission. There is no evidence of psychosis. They improved in the hospital with support and medication adjustments. They agree to take medications as prescribed and keep follow-up appointments. At the time of the discharge they are deemed to be stable and appropriate for outpatient level of care. They are not deemed to be at imminent risk of harm to self or others. They are aware of emergency and crisis services. Knows to call 911 or go to nearest emergency care center if in a crisis which cannot be handled as an outpatient. Transition of Care Transition Of Care Record: was reviewed with the patient Advance Directives Advance Directives Information Provided: Yes Advance Directives: No Mental Health Advance Directive: No Advance Directives on File: No Living Will: No Power of Gravity Prospector: No Advance Directives Reason:: Declines as Mental Health Visit. Suicide Risk Level Suicide Risk Level Comments: Acute risk is low given improvement in mood and denial of SI, lack of access to lethal means, plan to avoid substance use, hopefulness. Chronic risk is moderate given multiple non-modifiable risk factors: psychiatric co-morbid diagnoses, prior attempt, emotional reactivity, prior psychiatric hospitalizations but also with protective factors including employed, good social support, sense of responsibility to family and social supports, outpatient care now in place, positive coping skills, positive problem solving, capacity to establish therapeutic alliance, willingness to engage with treatment and capacity for self-observation. Counseled on ways to reduce acute and chronic risk including engaging with outpatient providers, using safety plan if needed, utilizing supports, taking medication, avoiding medical marijuana use and using coping skills. Modifiable risk factors of depression and anxiety were addressed during hospitalization through development of new coping skills, support meeting, safety planning, and medication adjustments. Risk Factors Assessment Male: No : Yes Do You Have Access To A Gun?: No Health Problems: Yes Mental Health Diagnoses: Yes Substance Use Disorders: No Previous Attempt: Yes Previous Psychiatric Hospitalization: Yes Hopelessness: No Protective Factors Assessment Employed: Yes ([employer]) Stable Relationships: Yes Supportive Family: Yes Discharge Data Lab Results 08/19/22 08/19/22 08/19/22 11:00 11:25 11:25 WBC 11.09 H RBC 5.34 Hgb 15.3 Hct 43.9 MCV 82.2 MCH 28.7 MCHC 34.9 RDW Std Deviation 36.8 RDW Coeff of Judah 12.4 Plt Count 298 MPV 10.8 Immature Gran % (Auto) 0.4 Neut % (Auto) 82.0 Lymph % (Auto) 11.2 Grant % (Auto) 6.0 Eos % (Auto) 0.1 Baso % (Auto) 0.3 Neut # (Auto) 9.10 H Lymph # (Auto) 1.24 Grant # (Auto) 0.67 H Eos # (Auto) 0.01 Baso # (Auto) 0.03 Immature Gran # (Auto) 0.04 Sodium 135 L Potassium 3.6 Chloride 102 Carbon Dioxide 22 Anion Gap 11 BUN 8 Creatinine 0.81 Est Cr Clr Drug Dosing 138.4 Est GFR ( Amer) 119.5 Est GFR (Non-Af Amer) 103.1 BUN/Creatinine Ratio 9.9 L Glucose 109 H Calcium 9.5 Total Bilirubin 0.5 AST 13 ALT 12 Alkaline Phosphatase 48 Total Protein 7.7 Albumin 4.5 Globulin 3.2 Albumin/Globulin Ratio 1.4 Lipase 17 Vitamin B12 25-OH Vitamin D Total Folate TSH Urine Color Dark Yellow Urine Appearance Cloudy A Urine pH 6.5 Ur Specific [place] 1.025 Urine Protein 1+ H Urine Glucose (UA) Negative Urine Ketones 3+ H Urine Blood Negative Urine Nitrite Negative Urine Bilirubin 1+ H Urine Urobilinogen Negative Ur Leukocyte Esterase 1+ H Urine WBC (Auto) 10-30 H Urine RBC (Auto) 5-10 H U Hyaline Cast (Auto) 1-5 U Epithel Cells (Auto) >30 H Urine Bacteria (Auto) 1+ H Ur Renal Epithelial Cell 0-5 Urine Mucus Present A Urine Test Salicylates Urine Opiates Screen Ur Methadone, Qual Acetaminophen Urine Barbiturates Ur Phencyclidine (PCP) U Amphetamin/Meth Scrn MDMA (Ecstasy) Screen U Benzodiazepines Scrn Ur Cocaine Metabolite U Marijuana (THC) Screen Ethyl Alcohol mg/dL SARS-CoV-2, RNA, NAAT 08/19/22 08/19/22 08/19/22 11:25 11:25 11:25 WBC RBC Hgb Hct MCV MCH MCHC RDW Std Deviation RDW Coeff of Judah Plt Count MPV Immature Gran % (Auto) Neut % (Auto) Lymph % (Auto) Grant % (Auto) Eos % (Auto) Baso % (Auto) Neut # (Auto) Lymph # (Auto) Grant # (Auto) Eos # (Auto) Baso # (Auto) Immature Gran # (Auto) Sodium Potassium Chloride Carbon Dioxide Anion Gap BUN Creatinine Est Cr Clr Drug Dosing Est GFR ( Amer) Est GFR (Non-Af Amer) BUN/Creatinine Ratio Glucose Calcium Total Bilirubin AST ALT Alkaline Phosphatase Total Protein Albumin Globulin Albumin/Globulin Ratio Lipase Vitamin B12 25-OH Vitamin D Total Folate TSH 0.588 Urine Color Urine Appearance Urine pH Ur Specific [place] Urine Protein Urine Glucose (UA) Urine Ketones Urine Blood Urine Nitrite Urine Bilirubin Urine Urobilinogen Ur Leukocyte Esterase Urine WBC (Auto) Urine RBC (Auto) U Hyaline Cast (Auto) U Epithel Cells (Auto) Urine Bacteria (Auto) Ur Renal Epithelial Cell Urine Mucus Urine Test Salicylates < 3.0 L Urine Opiates Screen Ur Methadone, Qual Acetaminophen < 3 L Urine Barbiturates Ur Phencyclidine (PCP) U Amphetamin/Meth Scrn MDMA (Ecstasy) Screen U Benzodiazepines Scrn Ur Cocaine Metabolite U Marijuana (THC) Screen Ethyl Alcohol mg/dL < 10.0 SARS-CoV-2, RNA, NAAT 08/19/22 08/19/22 08/19/22 Unknown Unknown Unknown WBC RBC Hgb Hct MCV MCH MCHC RDW Std Deviation RDW Coeff of Judah Plt Count MPV Immature Gran % (Auto) Neut % (Auto) Lymph % (Auto) Grant % (Auto) Eos % (Auto) Baso % (Auto) Neut # (Auto) Lymph # (Auto) Grant # (Auto) Eos # (Auto) Baso # (Auto) Immature Gran # (Auto) Sodium Potassium Chloride Carbon Dioxide Anion Gap BUN Creatinine Est Cr Clr Drug Dosing Est GFR ( Amer) Est GFR (Non-Af Amer) BUN/Creatinine Ratio Glucose Calcium Total Bilirubin AST ALT Alkaline Phosphatase Total Protein Albumin Globulin Albumin/Globulin Ratio Lipase Vitamin B12 25-OH Vitamin D Total Folate TSH Urine Color Urine Appearance Urine pH Ur Specific [place] Urine Protein Urine Glucose (UA) Urine Ketones Urine Blood Urine Nitrite Urine Bilirubin Urine Urobilinogen Ur Leukocyte Esterase Urine WBC (Auto) Urine RBC (Auto) U Hyaline Cast (Auto) U Epithel Cells (Auto) Urine Bacteria (Auto) Ur Renal Epithelial Cell Urine Mucus Urine Test Negative Salicylates Urine Opiates Screen Neg Ur Methadone, Qual Neg Acetaminophen Urine Barbiturates Neg Ur Phencyclidine (PCP) Neg U Amphetamin/Meth Scrn Neg MDMA (Ecstasy) Screen Neg U Benzodiazepines Scrn Neg Ur Cocaine Metabolite Neg U Marijuana (THC) Screen Pos H Ethyl Alcohol mg/dL SARS-CoV-2, RNA, NAAT NEGATIVE 08/20/22 12:11 WBC RBC Hgb Hct MCV MCH MCHC RDW Std Deviation RDW Coeff of Judah Plt Count MPV Immature Gran % (Auto) Neut % (Auto) Lymph % (Auto) Grant % (Auto) Eos % (Auto) Baso % (Auto) Neut # (Auto) Lymph # (Auto) Grant # (Auto) Eos # (Auto) Baso # (Auto) Immature Gran # (Auto) Sodium Potassium Chloride Carbon Dioxide Anion Gap BUN Creatinine Est Cr Clr Drug Dosing Est GFR ( Amer) Est GFR (Non-Af Amer) BUN/Creatinine Ratio Glucose Calcium Total Bilirubin AST ALT Alkaline Phosphatase Total Protein Albumin Globulin Albumin/Globulin Ratio Lipase Vitamin B12 > 1500 H 25-OH Vitamin D Total 18.9 L Folate > 22.30 TSH Urine Color Urine Appearance Urine pH Ur Specific [place] Urine Protein Urine Glucose (UA) Urine Ketones Urine Blood Urine Nitrite Urine Bilirubin Urine Urobilinogen Ur Leukocyte Esterase Urine WBC (Auto) Urine RBC (Auto) U Hyaline Cast (Auto) U Epithel Cells (Auto) Urine Bacteria (Auto) Ur Renal Epithelial Cell Urine Mucus Urine Test Salicylates Urine Opiates Screen Ur Methadone, Qual Acetaminophen Urine Barbiturates Ur Phencyclidine (PCP) U Amphetamin/Meth Scrn MDMA (Ecstasy) Screen U Benzodiazepines Scrn Ur Cocaine Metabolite U Marijuana (THC) Screen Ethyl Alcohol mg/dL SARS-CoV-2, RNA, NAAT Hospital Course (1) Major depressive disorder, recurrent, moderate: (2) REJI (generalized anxiety disorder): Plan 08/21/2022: Continue duloxetine 20mg daily (first dose this AM), start mirtazapine 15mg HS, continue Vistaril 25mg daily prn for anxiety/panic attacks. 08/20/2022: The patient was admitted to the [facility] ([facility] mental health unit) on q15 min checks (behavioral with suicide precautions) for safety. The patient will participate in group, recreational, and milieu therapies and will be offered additional individual and family sessions as clinically appropriate. Discussed possibility of resuming duloxetine based on her report of possible benefit with a previous trial. Reviewed potential benefits, known possible risks, and alternatives. * start duloxetine 20 mg daily, anticipate likely titration to higher dose Mental Health & Subst Abuse Tx Psychiatrist Name of Psychiatrist: [facility] Psychiatrist's Time of Appointment with Psychiatrist: You were placed on a waitlist; they will follow up directly. Psychiatric Appointment Comment: [address] [place], [place] [address], [place] [address] Therapist Name of Therapist: [facility] Therapist's Time of Therapist Appointment: You were placed on a waitlist; they will follow up directly. Therapy Appointment Comment: [address] [facility], [place] [address] Lawn Mower Name of Lawn Mower: None Post Discharge Appointments Primary Care Physician Name Of Family Doctor/PCP: HAY[facility] Vig[facility] Date of Future Appointment with PCP: 08/26/2022 Time of Appointment with PCP: 11:20 AM Provider Appointment Comment: [address] [place] [address] Discharge Plan Discharge Items Patient Disposition: Home - Self-Care Reason For Visit: MDD Discharge Diagnosis: Major Depressive Disorder with anxious distress Activity: Resume your previous activity Non-emergency contact: Primary Care Provider, Psychiatrist and Therapist Call non-emergency contact if: you have any medication questions and your symptoms worsen Follow-up/Referrals: PCP,NO [Primary Care Provider] - Diet: Regular Addtl Attending Provider Instructions: Optional mobile apps we discussed: -Suicide safety plan -Virtual Hope Box -Panic Metal Extrusion Supervisor SPECIAL CARE INSTRUCTIONS: 1. Follow through with your scheduled aftercare appointments. If unable to keep an appointment, please call to reschedule. 2. Take your medication only as prescribed. Medication should not be changed or stopped without the approval of your doctor. In the event of worsening symptoms or concerns about side effects, contact your doctor immediately. 3. Utilize new healthy coping skills, anger management skills, and stress management skills learned during your hospitalization. Journal feelings and process them with a support person. Identify stressors or situations that may result in relapse, deterioration or inappropriate behaviors and develop a plan to deal with those issues. 4. If your coping skills are ineffective and you are in crisis, contact your outpatient providers for direction. If unable to reach your providers, please call the [facility] CRISIS LINE AT , go to the [facility] walk-in center at [address], [address], [place], or go to the closest Emergency Room. 5. Avoid alcohol and un-prescribed drugs. 6. You have been provided with the Mental Health Advance Directives Pamphlet for your review. 7. Your condition is stable for discharge to outpatient level of care, but recovery is an ongoing process. Ifthoughts to harm yourself or others return, follow the safety plan developed during your stay. Planning for a safe return home includes securing weapons. Our treatment team recommends weaponsbe removed from the home until your outpatient provider reassesses your progress. In rare cases where the items themselvescannot be removed, guns and ammunitionshould be secured separatelyand keys stored by a reliable personoutside of the home. If you were admitted on an involuntary commitment, the police or other legal authorities may be involved in this process. AFTERCARE APPOINTMENTS: * Please call your insurance company prior to your scheduled appointment to confirm your aftercare providers are covered. Take your insurance information to your appointments. WHO TO CALL AND WHEN: Medical Emergencies: For questions or emergencies related to your hospital stay, please contact the Inpatient Behavioral Health Unit at [phone]. A biofuels processing technician is on-call 29/11 for the Behavioral Health Unit for emergencies At any time you feel your situation is an emergency, you may also call 911 immediately. Pending Studies at Discharge: No Stand-Alone Forms: [facility] Medications and DC Order Prescriptions: New hydroxyzine HCl 25 mg Tablet 25 mg PO DAILY PRN (Reason: anxiety/panic attack/insomnia) 30 Days Qty: 30 0RF mirtazapine 15 mg Tablet 15 mg PO HS 30 Days Qty: 30 0RF duloxetine [Cymbalta] 20 mg Capsule,Delayed Release(Dr/Ec) 20 mg PO QAM 30 Days Qty: 30 0RF Discharge Orders: Discharge Order (Routine); Ordered 08/21/22 Ordered By: Marleen Arguelles/Other Patient Handouts: Journaling for Mental Health Admission Data Admit Date/Time: 08/19/22 17:13 Attending Provider: Marleen Patricia Admit Provider: David Patino Primary Care Provider: PCP,NO Other Interventions: Discharge Summary Assessment (RN) Last Done: 08/21/22 12:23 PSY Interdisciplinary Discharge Planning Last Done: 08/21/22 12:28 Coding Level of Care Code 46276 D/C day mgmt > 30 min Diagnoses Major depressive disorder, recurrent, moderate F33.1 REJI (generalized anxiety disorder) F41.1 Time Spent (min) 55
[2022-08-21] MEDS ORDERED: MIRTAZAPINE TAB 15 MG TAB PO SCH (22:00)
[2022-08-22 08:37] LABS: Marijuana Quant, GCMS Urine 2374 ng/mL (<5)
== END 2022-08-21 18:05 | disposition home or self-care (01) | DRG 885 ==
LOC: ED 10:04 → 3S 17:13 → SUATTDRO 17:13 → 3S 17:27